=== PATIENT | male | born 1965 | race Caucasian/White ===

== ENCOUNTER → 2016-05-30 | Outpatient (CLI) | payer OTHER ==
[~2016-05-30] MED LIST: ALBU17IN INH; AMLO5TAB2 PO; BACL10TA2 PO; BUPR150T5 PO; FLONASE; GABA600T PO; HYDR25TAB PO; LISI-538 PO; LYRI75CA PO; NAPR500T2 PO; OMEP20CA3 PO; PREG25CA PO; SYMB16INH INH; TIOT18INH INH; TRAZ100T4 PO
--- NOTE | 2016-05-30 11:16 | REP ---
CT LUMBAR SPINE WITHOUT CONTRAST: HISTORY: Spondylosis. COMPARISON: MR 05/29/2015. There is no disc bulge or herniation at the L1-2 level. The L1 nerves exit the neural foramina without compression. A diffuse disc bulge is present at the L2-3 level. There is minimal compression of the thecal sac. The L2 nerves exit the neural foramina without compression. A diffuse disc bulge is present at the L3-4 level. There are 2 mm of retrolisthesis of L3 on L4. There is minimal compression at the thecal sac. The L3 nerves exit the neural foramina without compression. A diffuse disc bulge is present at the L4-5 level. There is no compression of the thecal sac. There is hypertrophy of the posterior articulating facets. The L4 nerves exit the neural foramina without compression. The patient is status post L5-S1 anterior spinal fusion and L5 laminectomy. A metal cage is present. There is no disc bulge or herniation. There are 5 mm of grade 1 spondylolisthesis of L5 on S1. This is associated with L5 pars defects. There is compression of the L5 nerves in the neural foramina. The L3-4 and L4-5 intervertebral discs are decreased in height consistent with disc degeneration. There is minimal loss of height of the L5 vertebral body. IMPRESSION: 1. Diffuse disc bulges at the L2-3 and L4-5 levels with minimal thecal sac compression. 2. Diffuse disc bulge and retrolisthesis at the L3-4 level with minimal thecal sac compression. 3. The patient is status post L5-S1 anterior spinal fusion and L5 laminectomy. There is grade 1 spondylolisthesis of L5 on S1. There is compression of the L5 nerves in the neural foramina. There is no significant change compared to the previous study. Signed by Kiran De Leon MD 05/30/2016 11:26 A
== END ==
LOC: M RAD 10:25
PROVIDERS: ATTEND Neurological Surgery
DX: M47.16 Other spondylosis with myelopathy, lumbar region (principal); M51.26 Other intervertebral disc displacement, lumbar region

== ENCOUNTER → 2016-06-10 | Outpatient (REF) | payer OTHER | LOC: M LAB REF 12:24 | PROVIDERS: ATTEND Neurological Surgery | DX: Z01.818 Encounter for other preprocedural examination (principal) ==

== ENCOUNTER → 2016-06-18 | Outpatient (CLI) | payer OTHER | LOC: M LAB 09:18 | PROVIDERS: ATTEND Family Medicine | DX: Z11.59 Encounter for screening for other viral diseases (principal) ==

== ENCOUNTER → 2016-06-18 | Outpatient (CLI) | payer OTHER ==
[2016-06-18 11:14] LABS: BASO # 0.1 K/mm3 (0.0-0.2); BASO % 0.9 % (0.0-1.0); EOS # 0.2 K/mm3 (0.0-0.50); EOS % 3.2 % (0.0-3.0); LARGE UNSTAINED CELL # 0.2 K/mm3 (0.0-0.4); LARGE UNSTAINED CELL % 2.5 % (0.0-4.0); LYMPH # 2.3 K/mm3 (1.5-4.5); LYMPH % 32.2 % (24.0-44.0); MEAN CORPUSCULAR HEMOGLOBIN 31.5 pg (27.0-33.0); MEAN CORPUSCULAR HGB CONC 33.9 g/dl (32.0-36.5); MONO # 0.5 K/mm3 (0.0-0.8); MONO % 6.3 % (0.0-5.0); NEUTROPHILS # 3.9 K/mm3 (1.8-7.7); NEUTROPHILS % 54.9 % (36.0-66.0); PLATELET COUNT, AUTOMATED 166 k/mm3 (150-450); RED CELL DISTRIBUTION WIDTH 13.1 % (11.5-14.5); WHITE BLOOD COUNT 7.1 K/mm3 (4.0-10.0)
[2016-06-18 11:16] LABS: MICROSCOPIC INDICATED? MAN NO (NO)
[2016-06-18 11:19] LABS: INR 0.89
[2016-06-18 11:42] LABS: ALBUMIN 4.3 GM/DL (3.2-5.2); ALBUMIN/GLOBULIN RATIO 1.34 (1.00-1.93); ALKALINE PHOSPHATASE 70 U/L (45-117); ALT/SGPT 72 U/L (12-78); ANION GAP 7 MEQ/L (8-16); AST/SGOT 27 U/L (15-37); BILIRUBIN,TOTAL 0.3 MG/DL (0.2-1.0); BLOOD UREA NITROGEN 15 MG/DL (7-18); CALCIUM LEVEL 9.5 MG/DL (8.5-10.1); CARBON DIOXIDE LEVEL 30 MEQ/L (21-32); CHLORIDE LEVEL 106 MEQ/L (98-107); CREATININE FOR GFR 0.92 MG/DL (0.70-1.30); GLOMERULAR FILTRATION RATE > 60.0 (>60); GLUCOSE, FASTING 75 MG/DL (70-105); POTASSIUM SERUM 4.8 MEQ/L (3.5-5.1); SODIUM LEVEL 143 MEQ/L (136-145); TOTAL PROTEIN 7.5 GM/DL (6.4-8.2)
--- NOTE | 2016-06-18 18:35 | ECGEPIP ---
Stationary ECG Study [facility] Test Date: 2016-06-18 Pat Name: JOZEF ROMERO Department: Room: - Gender: M Assistant Auditor: : 1965 Requested By: JOSEPH Grant Order Number: [id number] Reading MD: David Whitney Measurements Intervals [place] Rate: 66 P: 72 RI: 166 QRS: -21 QRSD: 89 T: 36 QT: 371 QTc: 391 Interpretive Statements SINUS RHYTHM BORDERLINE LEFT AXIS DEVIATION NO SIGNIFICANT CHANGES, LAST TRACING WAS ON 02/08/2016 AT 13:44:26 Electronically Signed On 06-18-2016 18:35:02 EST by David Whitney
--- NOTE | 2016-06-19 00:22 | REP ---
Clinical: Preoperative assessment . Comparison: 02/08/2016 . Technique: PA and lateral. Findings: The mediastinum and cardiac silhouette are normal. Airway is patent and midline. The lung wills demonstrate chronic COPD type changes and scarring without acute consolidation, effusion, or pneumothorax. The skeletal structures are intact and normal. Impression: 1. No acute cardiopulmonary process. Signed by Davide Rios MD 06/19/2016 12:14 A
== END ==
LOC: M LAB 09:09
PROVIDERS: ATTEND Neurological Surgery
DX: Z01.818 Encounter for other preprocedural examination (principal)

== ENCOUNTER → 2016-07-09 | Day surgery (SDC) | payer OTHER ==
[~2016-07-09] VITALS: Ht 175.3 cm; Wt 119.7 kg
[~2016-07-09] MED LIST changes: +ACET500C PO; +AMBI10TA PO; +BREO1INH3 INH; +CEFUROXIME SODIUM 1.5 GM in D5W MINI-BAG PLUS 50 ML IV ONE; +CIPR-250 PO; +EFFE150C PO; +HYDROmorphone HCL 2 MG/ML 1ML VIAL (J1170) As Ordered ONE; +LIDOCAINE 1% SDV INJ 30 ML VIAL As Ordered ONE; +LIDOCAINE 1% SDV INJ 30 ML VIAL XX ONE; +LIDOCAINE 2% INJ 100 MG/5 ML SDV (FOR ANES.) As Ordered ONE; +LR 1,000 ML IV SCH; +MIDAZOLAM INJ 2 MG/2 ML VIAL (J2250) As Ordered ONE; +MITI1CAP PO; +NORC5TAB PO; +NORCO, ANEXSIA 5/325MG TABLET (HYDROcodone/ACETAMINOPHEN) PO PRN; +ONDANSETRON 4MG/2ML VIAL (J2405) As Ordered ONE; +ONDANSETRON 4MG/2ML VIAL (J2405) IV PRN; +PERCOCET 5MG/325MG TAB PO PRN; +PROPOFOL 200 MG/20 ML VIAL As Ordered ONE; +SUCCINYLCHOLINE 100 MG/5 ML SYRINGE (J0330) As Ordered ONE; +ZYRT10CA PO; +fentaNYL 100 MCG/2 ML INJECTION (J3010) As Ordered ONE; +methylPREDNISolone SUSP 40 MG/ML (DEPO-medrol) VIAL (J1030) As Ordered ONE; +methylPREDNISolone SUSP 40 MG/ML (DEPO-medrol) VIAL (J1030) XX ONE
[2016-07-09] MEDS: fentaNYL 100 MCG/2 ML INJECTION (J3010) IV PRN ×4 (09:21→09:45)
[2016-07-09] MEDS: HYDROmorphone HCL 1 MG/ML SYRINGE (J1170) IV PRN ×2 (09:59→10:10)
[2016-07-09 11:30] VITALS: BP 128/66
--- NOTE | 2016-07-15 08:18 | RO ---
DATE OF PROCEDURE: 07/09/2016 PREPROCEDURE DIAGNOSIS: Left carpal tunnel syndrome. POSTPROCEDURE DIAGNOSIS: Left carpal tunnel syndrome. PROCEDURE: Release of left carpal tunnel. SURGEON: Dr. Husam Corral. INS[employer]: General. ANESTHESIA: ESTIMATED BLOOD LOSS: FINDINGS: Please see office notes for detailed preoperative evaluation and discussion. Patient was seen in the preoperative area. He had no attendants or family with him. He clamped that his Medicaid drive will come in and transport him back to his home. Patient has clinical and electrodiagnostic evidence of left carpal tunnel syndrome. He is aware of all options, risks, scope, expected outcome and sequel of the proposed salvage surgery, and understood no guarantees of any kind can be given and that the risks of surgery would include , coma, infection, persistence or worsening of symptoms and/or deficits, development of RSD, and/or any catastrophic sequel. He claimed he understood not all his symptoms can be readily explained on carpal tunnel syndrome, thus not all may be addressed. He understood he is a hazardous candidate for surgery on account of his clinical and electrodiagnostic findings and multiple comorbidities including obesity, tobacco/alcohol usage and substance abuse, cervical spondylosis with radiculopathy and others. He once again states that he cannot live with his symptoms, and is willing to run any risks for any possible benefit. These discussions were held in the presence of OR nurse. Patient was cleared for surgery by his primary care provider. He has follow up instructions. After informed consent and after all matters pertaining to surgery, anesthesia, and followup care had been discussed with him, he wished to proceed with surgery. He mutually agreed with anesthesia service to have the surgery done in general anesthesia. Once in the operating room after general anesthesia, the area of surgery was prepped and draped in the usual sterile fashion with the left upper extremity exsanguinated using Esmarch dressing and a tourniquet was applied at 280 mmHg. A skin incision was given along one of the palmar creases distal to the wrist crease, alveolar layer was reached and incised, cut edges of the blood vessels were coagulated with bipolar cautery. Tendons of the palmaris longus were . Thenar and hypothenar muscles were stripped off the flexor retinaculum which was then incised in its entirety. There were multiple areas of nodular hypertrophic defects of retinaculum which were indenting the median nerve and crowding the carpal tunnel. There were adhesions of the median nerve and these adhesions were removed and complete decompression of the medial nerve was achieved in the carpal tunnel and distal forearm. Wound was closed in two layers. Bleeding was negligible on account of tourniquet. Patient had written and verbal followup instructions. There was no attendant in the waiting room for him.
== END | disposition home or self-care (01) ==
LOC: M SDC 06:10
PROVIDERS: ATTEND Neurological Surgery
DX: G56.02 Carpal tunnel syndrome, left upper limb (principal); I10 Essential (primary) hypertension; K21.9 Gastro-esophageal reflux disease without esophagitis; J44.9 Chronic obstructive pulmonary disease, unspecified; F17.210 Nicotine dependence, cigarettes, uncomplicated; Z79.899 Other long term (current) drug therapy; F32.9 Major depressive disorder, single episode, unspecified
CPT/HCPCS: 64721; J0330; J0697; J1030; J1170; J2250; J2405; J3010

== ENCOUNTER → 2016-09-18 | Outpatient (CLI) | payer OTHER ==
[~2016-09-18] MED LIST changes: -CEFUROXIME SODIUM 1.5 GM in D5W MINI-BAG PLUS 50 ML IV ONE; -HYDROmorphone HCL 2 MG/ML 1ML VIAL (J1170) As Ordered ONE; -LIDOCAINE 1% SDV INJ 30 ML VIAL As Ordered ONE; -LIDOCAINE 1% SDV INJ 30 ML VIAL XX ONE; -LIDOCAINE 2% INJ 100 MG/5 ML SDV (FOR ANES.) As Ordered ONE; -LR 1,000 ML IV SCH; -MIDAZOLAM INJ 2 MG/2 ML VIAL (J2250) As Ordered ONE; +NORC1TAB4 PO; -NORC5TAB PO; -NORCO, ANEXSIA 5/325MG TABLET (HYDROcodone/ACETAMINOPHEN) PO PRN; -ONDANSETRON 4MG/2ML VIAL (J2405) As Ordered ONE; -ONDANSETRON 4MG/2ML VIAL (J2405) IV PRN; -PERCOCET 5MG/325MG TAB PO PRN; -PROPOFOL 200 MG/20 ML VIAL As Ordered ONE; -SUCCINYLCHOLINE 100 MG/5 ML SYRINGE (J0330) As Ordered ONE; -fentaNYL 100 MCG/2 ML INJECTION (J3010) As Ordered ONE; -methylPREDNISolone SUSP 40 MG/ML (DEPO-medrol) VIAL (J1030) As Ordered ONE; -methylPREDNISolone SUSP 40 MG/ML (DEPO-medrol) VIAL (J1030) XX ONE
--- NOTE | 2016-09-18 20:49 | REP ---
Clinical: Cervical spondylosis. Technique: AP, lateral, flexion/extension, open-mouth, and bilateral oblique views of the cervical spine. Comparison: 11/28/2015. Findings: The patient is status post posterior fusion and laminectomy at the C4-5 level. Orthopedic hardware appears stable in position and normal in appearance. Straightening of the cervical spine is appreciated along with advanced degenerative disc osteophyte complex involving the C5-6 level and to a lesser extent the C6-7 and C4-5 levels. No acute fracture / compression injury or subluxation. Prevertebral soft tissues are normal. Impression: Advanced focal degenerative disc osteophyte complexes involving the C4-5 through C6-7 levels. Prior laminectomy and posterior fusion at the C4-5 level. Signed by Davide Rios MD 09/18/2016 05:56 P
--- NOTE | 2016-09-19 08:06 | REP ---
MRI CERVICAL SPINE WITHOUT CONTRAST: HISTORY: Spondylosis. A disc bulge is present at the C3-4 level. There is minimal effacement of the thecal sac without spinal cord compression. Bilateral uncinate process hypertrophy is present. This produces minimal and mild narrowing of the right and left C3 neural foramina respectively. A disc bulge and small central disc protrusion with associated osteophyte formation are present at the C4-5 level. There is mild effacement of the thecal sac without spinal cord compression. Bilateral uncinate process hypertrophy is present. This produces mild and moderate narrowing of the right and left C4 neural foramina respectively. The patient is status post C4-5 posterior spinal fusion and laminectomy. Facet screws are present. A disc bulge with associated osteophyte formation is present at the C5-6 level. There is moderate effacement of the thecal sac without spinal cord compression. Bilateral uncinate process hypertrophy is present. This produces moderate narrowing of the C5 neural foramina. A disc bulge and small central disc protrusion with associated osteophyte formation are present at the C6-7 level. There is minimal spinal cord compression. Bilateral uncinate process hypertrophy is present. This produces mild and moderate narrowing of the right and left C6 neural foramina respectively. A disc bulge is present at the C7-T1 level. There is mild effacement of the thecal sac without spinal cord compression. Bilateral facet hypertrophy is present. This produces minimal narrowing of the C7 neural foramina. There is no other disc bulge or herniation. The remaining neural foramina are patent. The spinal cord is normal in signal intensity. The C4-5 through C6-7 intervertebral discs are decreased in height consistent with disc degeneration. Normal signal intensity is present in the cervical vertebral bodies. There is no subluxation. IMPRESSION: 1. The patient is status post C4-5 posterior spinal fusion. There is anatomic alignment of the cervical spine. 2. There is cervical spondylosis at the C2-3 through C7-T1 levels most significant at the C6-7 level where there is minimal spinal cord compression. Signed by Kiran De Leon MD 09/19/2016 08:10 A
== END ==
LOC: M RAD 16:45
PROVIDERS: ATTEND Neurological Surgery
DX: M47.892 Other spondylosis, cervical region (principal); M50.321 Other cervical disc degeneration at C4-C5 level; M50.322 Other cervical disc degeneration at C5-C6 level; M50.323 Other cervical disc degeneration at C6-C7 level

== ENCOUNTER → 2019-11-18 | Outpatient (CLI) | payer MEDICAID ==
[~2019-11-18] MED LIST changes: -AMLO5TAB2 PO; +AMLO5TAB6 PO; -EFFE150C PO; +EFFE150C2 PO; -GABA600T PO; +GABA600T4 PO; +HYDR-2541 PO; -HYDR25TAB PO; +NAPR-885 PO; -NAPR500T2 PO; -NORC1TAB4 PO; +NORC1TAB7 PO; +OMEP1CAP73 PO; -OMEP20CA3 PO; +TRAZ-257 PO; -TRAZ100T4 PO
== END ==
LOC: M OUTALCOH 07:55
PROVIDERS: ATTEND Psychiatry & Neurology Addiction Medicine
DX: Z13.39 Encounter for screening examination for other mental health and behavioral disorders (principal); F10.20 Alcohol dependence, uncomplicated

== ENCOUNTER 2019-12-22 10:00 | Outpatient (RCR) | payer MEDICAID ==
[~2019-12-22 10:00] MED LIST changes: +AMLO1TAB24 PO; -AMLO5TAB6 PO
== END 2019-12-23 ==
LOC: M OUTALCOH 10:00
PROVIDERS: ATTEND Psychiatry & Neurology Addiction Medicine
DX: F10.20 Alcohol dependence, uncomplicated (principal); F12.10 Cannabis abuse, uncomplicated; F17.200 Nicotine dependence, unspecified, uncomplicated